=== PATIENT | male | born 1975 | race Caucasian/White ===

== ENCOUNTER 2021-06-29 04:38 | Day surgery (SDC) | payer BC ==
[2021-06-26 15:04] VITALS: BMI 31.2
[2021-06-29 11:38] VITALS: TEMP 97
[2021-06-29 12:21] VITALS: BP 116/77; PULSE 68
== END 2021-06-29 12:25 | disposition home or self-care (01) ==
LOC: JASU-ENDO 04:38
PROVIDERS: ATTEND Internal Medicine Gastroenterology
PROC: 0DJD8ZZ Inspection of Lower Intestinal Tract, Via Natural or Artificial Opening Endoscopic (ICD-10-PCS; principal; 2021-06-29 10:30)
DX: Z12.11 Encounter for screening for malignant neoplasm of colon (principal)